=== PATIENT | male | born 1990 | race Caucasian/White ===

== ENCOUNTER 2017-10-08 03:27 | Emergency (ER) | payer OTHER ==
[~2017-10-08] VITALS: Ht 175.3 cm; Wt 186.4 kg
[2017-10-08 03:32] VITALS: Ht 175.3 cm; Wt 186.4 kg
[2017-10-08 04:14] VITALS: BP 153/94
== END 2017-10-08 04:11 | disposition home or self-care (01) ==
LOC: ED 03:27
DX: H66.92 Otitis media, unspecified, left ear (principal)
CPT/HCPCS: J1885